=== PATIENT | female | born 1990 | race Caucasian/White ===

== ENCOUNTER → 2024-11-15 13:29 | Outpatient (REF) | payer BC, SELFPAY | LOC: HWRAD 13:29 | PROVIDERS: ATTENDING PHYSICIAN Internal Medicine | DX: N18.31 Chronic kidney disease, stage 3a (principal); D18.03 Hemangioma of intra-abdominal structures; R10.9 Unspecified abdominal pain | CPT/HCPCS: 76700; 76830; 76856 ==

== ENCOUNTER → 2025-10-08 08:57 | Outpatient (REF) | payer BC, SELFPAY | LOC: RAD 08:57 | PROVIDERS: ATTENDING PHYSICIAN Obstetrics & Gynecology Gynecology; FAMILY PHYSICIAN Internal Medicine | DX: R10.20 Pelvic and perineal pain unspecified side (principal) | CPT/HCPCS: 76830; 76856 ==